=== PATIENT | female | born 1925 ===

== ENCOUNTER 2017-08-03 13:14 | Inpatient (IN) | payer MEDICAID, MEDICARE ==
[2017-08-03] MEDS ORDERED: Sodium Chloride 0.9% 1,000 ML IV STA (13:56)
--- NOTE | 2017-08-03 14:04 | RAD ---
HISTORY: Shortness of breath COMPARISON: 08/05/2014. FINDINGS: LUNGS: The lungs are hyperinflated and there is peribronchial thickening with chronic changes in both lungs. No focal consolidation. PLEURA: No significant pleural effusion identified, no pneumothorax apparent. CARDIOVASCULAR: Normal. OSSEOUS STRUCTURES: No significant abnormalities. VISUALIZED UPPER ABDOMEN: Normal. OTHER FINDINGS: None. IMPRESSION: No active pulmonary disease. COPD.
--- NOTE | 2017-08-03 14:07 | ED PDOC ---
HPI: Trauma/Fall - HPI Time Seen by Provider: 08/03/17 13:46 Chief Complaint (Nursing): Trauma Chief Complaint (Provider): found on floor History Per: Patient, EMS, Family History/Exam Limitations: clinical condition, physical impairment (dementia) Onset/Duration Of Symptoms: Unknown Additional Complaint(s): 89yo female, lives alone, found on floor in bathroom by a family member this morning when she wouldnt answer the door. They are unsure when she fell, son last saw her several weeks ago and hasnt spoken to her in 'awhile'. Patient has baseline mild dementia, she is unable to state reliably when she fell. Found soiled in feces. Past Medical History Reviewed: Historical Data, Nursing Documentation, Vital Signs Vital Signs: Last Vital Signs Temp 97.6 F 08/03/17 13:26 Pulse 104 H 08/03/17 13:26 Resp 18 08/03/17 13:26 BP 130/84 08/03/17 13:26 Pulse Ox 99 08/03/17 13:26 - Medical History PMH: Dementia, Diabetes, HTN - Surgical History Surgical History: Cholecystectomy Other surgeries: hip surgeries, shoulder surgeries - Family History Family History: States: Unknown Family Hx - Living Arrangements Living Arrangements: Alone - Social History Current smoker - smoking cessation education provided: No - Home Medications Home Medications: Ambulatory Orders Medication Instructions Recorded MetFORMIN [glucoPHAGE] 1,000 mg PO BID 08/03/17 Metoprolol Succinate [Toprol XL] 25 mg PO DAILY 08/03/17 Pravastatin Sodium [Pravachol] 40 mg PO HS 08/03/17 Ramipril [Altace] 10 mg PO DAILY 08/03/17 hydroCHLOROthiazide [Hydrodiuril] 25 mg PO DAILY 08/03/17 - Allergies Allergies/Adverse Reactions: Allergies Allergy/AdvReac Type Severity Reaction Status Date / Time No Known Allergies Allergy Verified 08/20/15 23:55 Review of Systems Review Of Systems: ROS cannot be obtained secondary to pt's inabilty to answer questions. Physical Exam - Reviewed Nursing Documentation Reviewed: Yes Vital Signs Reviewed: Yes - Physical Exam Appears: Positive for: Non-toxic (dry, confused) Head Exam: Positive for: ATRAUMATIC, NORMAL INSPECTION, NORMOCEPHALIC Skin: Positive for: Normal Color, Warm, DRY Eye Exam: Positive for: EOMI, Normal appearance, PERRL ENT: Positive for: Normal ENT Inspection Neck: Positive for: Normal, Painless ROM Cardiovascular/Chest: Positive for: Regular Rate, Rhythm Respiratory: Positive for: CNT, Normal Breath Sounds Gastrointestinal/Abdominal: Positive for: Soft. Negative for: Tenderness Extremity: Positive for: Tenderness (R hip). Negative for: Deformity, Swelling Neurologic/Psych: Positive for: Alert, Other (confused, moves all ext w equal tone, no gaze preference). Negative for: Oriented, Facial Droop - Laboratory Results Result Diagrams: 08/03/17 14:10 08/03/17 14:10 - ECG ECG: Positive for: Interpreted By Mn ECG Rhythm: Positive for: Sinus Rhythm, Nonspecific Changes Rate: 95 O2 Sat by Pulse Oximetry: 99 Pulse Ox Interpretation: Normal Medical Decision Making Medical Decision Making: workup for fall, r/o traumatic injury, dehydration, rhabdomyolysis, ICH/CVA, metabolic degrangement, kidney injury or other diagnosis not listed Time: 1353 EKG CMP CPK Troponin I CBC w/ diff PTT & Prothrombin Toradol 15 mg IVP Sodium Chloride 1L IV Urinalysis chest x-ray Head CT Cervical Spine CT Right hip x-ray Reevaluation Time: 1402 --Chest x-ray FINDINGS: LUNGS: The lungs are hyperinflated and there is peribronchial thickening with chronic changes in both lungs. No focal consolidation. PLEURA: No significant pleural effusion identified, no pneumothorax apparent. CARDIOVASCULAR: Normal. OSSEOUS STRUCTURES: No significant abnormalities. VISUALIZED UPPER ABDOMEN: Normal. OTHER FINDINGS: None. IMPRESSION: No active pulmonary disease. COPD. Time: 1429 --Head CT FINDINGS: HEMORRHAGE: No intracranial hemorrhage. BRAIN: No mass effect or edema. Atrophy. Chronic microvascular ischemic changes. VENTRICLES: Prominent. No hydrocephalus. CALVARIUM: Unremarkable. PARANASAL SINUSES: Unremarkable as visualized. No significant inflammatory changes. MASTOID AIR CELLS: Unremarkable as visualized. No inflammatory changes. OTHER FINDINGS: None. IMPRESSION: No acute intracranial pathology. Time: 1435 --Cervical spine x-ray FINDINGS: VERTEBRAE: No fracture. Normal alignment. No destructive bony lesion. DISCS/SPINAL CANAL/NEURAL FORAMINA: Multilevel disc space narrowing with osteophytic ridging and multi foraminal narrowing. PARASPINAL SOFT TISSUES: Unremarkable. OTHER FINDINGS: None. IMPRESSION: No acute fracture. Multilevel degenerative changes. Time: 1501 --Hip/pelvis x-ray FINDINGS: BONES: Osteopenia. Bilateral hip arthroplasties with heterotopic ossification adjacent to both prostheses. No acute fracture. JOINTS: Bilateral hip arthroplasties. Sacroiliac joints and symphysis pubis mild degenerative. SOFT TISSUES: Normal. OTHER FINDINGS: None. IMPRESSION: Bilateral hip arthroplasties. No definite acute fracture. 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 She walks w walker at home and appears mildly confused compared to baseline Time: 1516 --Admit to hospital routine: as inpatient in med/surg for rhabdomyolysis and dehydration under the care of Dr. David Toro MD. Scribe Attestation: Documented by Nolvia Ramirez, acting as a scribe for Lopez Palomo DO. Provider Scribe Attestation: All medical record entries made by the Scribe were at my direction and personally dictated by me. I have reviewed the chart and agree that the record accurately reflects my personal performance of the history, physical exam, medical decision making, and the department course for this patient. I have also personally directed, reviewed, and agree with the discharge instructions and disposition. Disposition - Clinical Impression Clinical Impression: Rhabdomyolysis, Dehydration - Patient ED Disposition Is Patient to be Admitted: Yes Counseled Patient/Family Regarding: Studies Performed, Diagnosis, Need For Followup - Disposition Disposition: Routine/Home Disposition Time: 15:20 Condition: STABLE Forms: [employer] (Latvian)
[2017-08-03 14:22] LABS: BASO # 0.1 K/uL (0.0-0.2); BASO % 0.9 % (0.0-2.0); EOS % 0.1 % (0.0-4.0); HEMOGLOBIN 14.7 g/dL (12.0-16.0); LYMPH # 2.3 K/uL (1.0-4.3); MEAN CELL VOLUME 77.5 fl (81.0-99.0); MEAN CORPUSCULAR HEMOGLOBIN 25.1 pg (27.0-31.0); MEAN CORPUSCULAR HGB CONC 32.4 g/dL (33.0-37.0); MEAN PLATELET VOLUME 9.2 fl (7.2-11.7); MONO # 0.7 K/uL (0.0-0.8); MONO % 5.3 % (0.0-10.0); NEUT # 9.6 K/uL (1.8-7.0); NEUT % 75.7 % (50.0-75.0); RBC 5.87 Mil/uL (3.80-5.20); RED CELL DISTRIBUTION WIDTH 13.6 % (11.5-14.5); WHITE BLOOD COUNT 12.7 K/uL (4.8-10.8)
[2017-08-03 14:31] LABS: INR 1.1 (0.9-1.2); PARTIAL THROMBOPLASTIN TIME 26.3 Seconds (25.6-37.1); PROTHROMBIN TIME 12.2 Seconds (9.8-13.1)
[2017-08-03 14:32] LABS: ALB/GLOB RATIO 0.9 (1.0-2.1); ALBUMIN 4.2 g/dL (3.5-5.0); ALT/SGPT 50 U/L (9-52); AST/SGOT 80 U/L (14-36); BLOOD UREA NITROGEN 21 mg/dl (7-17); CALCIUM 10.1 mg/dL (8.4-10.2); GFR AFRICAN-AMERICAN > 60; GFR NON-AFRICAN AMERICAN > 60
--- NOTE | 2017-08-03 14:33 | CT ---
PROCEDURE: CT HEAD WITHOUT CONTRAST. HISTORY: r/o ICH COMPARISON: None available. TECHNIQUE: Axial computed tomography images were obtained through the head/brain without intravenous contrast. Radiation dose: Total exam DLP = 1173.6 mGy-cm. This CT exam was performed using one or more of the following dose reduction techniques: Automated exposure control, adjustment of the mA and/or kV according to patient size, and/or use of iterative reconstruction technique. FINDINGS: HEMORRHAGE: No intracranial hemorrhage. BRAIN: No mass effect or edema. Atrophy. Chronic microvascular ischemic changes. VENTRICLES: Prominent. No hydrocephalus. CALVARIUM: Unremarkable. PARANASAL SINUSES: Unremarkable as visualized. No significant inflammatory changes. MASTOID AIR CELLS: Unremarkable as visualized. No inflammatory changes. OTHER FINDINGS: None. IMPRESSION: No acute intracranial pathology.
--- NOTE | 2017-08-03 14:51 | CT ---
PROCEDURE: CT Cervical Spine without contrast HISTORY: trauma r/o fx COMPARISON: None available. TECHNIQUE: Axial computed tomography images were obtained of the cervical spine without the use of intravenous contrast. Coronal and sagittal reformatted images were created and reviewed. Radiation dose: Total exam DLP = 528 mGy-cm. This CT exam was performed using one or more of the following dose reduction techniques: Automated exposure control, adjustment of the mA and/or kV according to patient size, and/or use of iterative reconstruction technique. FINDINGS: VERTEBRAE: No fracture. Normal alignment. No destructive bony lesion. DISCS/SPINAL CANAL/NEURAL FORAMINA: Multilevel disc space narrowing with osteophytic ridging and multi foraminal narrowing. PARASPINAL SOFT TISSUES: Unremarkable. OTHER FINDINGS: None. IMPRESSION: No acute fracture. Multilevel degenerative changes.
--- NOTE | 2017-08-03 15:02 | RAD ---
PROCEDURE: Right Hip Radiographs. HISTORY: fall COMPARISON: None. FINDINGS: BONES: Osteopenia. Bilateral hip arthroplasties with heterotopic ossification adjacent to both prostheses. No acute fracture. JOINTS: Bilateral hip arthroplasties. Sacroiliac joints and symphysis pubis mild degenerative. SOFT TISSUES: Normal. OTHER FINDINGS: None. IMPRESSION: Bilateral hip arthroplasties. No definite acute fracture.
[2017-08-03] MEDS ORDERED: Oxycodone/Acetaminophen 5/325 mg Tab PO PRN (15:54)
[2017-08-03] MEDS ORDERED: Glucagon Recombinant 1 mg Inj IM PRN (16:00)
[2017-08-03] MEDS ORDERED: Dextrose 50% SYRINGE Inj (50 ml) IV PRN (16:00)
[2017-08-03 16:45] LABS: SQUAMOUS EPITHIAL 1 /hpf (0-5); URINE BILIRUBIN NEGATIVE (NEGATIVE); URINE BLOOD MODERATE (NEGATIVE); URINE CLARITY SLIGHTY-CLOUDY (Clear); URINE COLOR YELLOW (YELLOW); URINE GLUCOSE (UA) 50 mg/dL (Normal); URINE LEUKOCYTE ESTERASE NEG Leu/uL (Negative); URINE PROTEIN 100 mg/dL (NEGATIVE); URINE UROBILINOGEN 0.2-1.0 mg/dL (0.2-1.0)
[2017-08-03] MEDS: Insulin Lispro (humaLOG) 100 Units/ml Inj SC SCH ×2 (17:51→21:50)
[2017-08-03] MEDS ORDERED: Pneumococcal 23-Valent Vaccine IM ONE (21:00)
[2017-08-04 06:06] LABS: BASO # 0.1 K/uL (0.0-0.2); BASO % 0.6 % (0.0-2.0); EOS # 0.1 K/uL (0.0-0.7); EOS % 1.2 % (0.0-4.0); LYMPH # 2.6 K/uL (1.0-4.3); LYMPH % 26.7 % (20.0-40.0); MEAN CELL VOLUME 77.5 fl (81.0-99.0); MEAN CORPUSCULAR HEMOGLOBIN 24.7 pg (27.0-31.0); MEAN CORPUSCULAR HGB CONC 31.9 g/dL (33.0-37.0); MEAN PLATELET VOLUME 8.8 fl (7.2-11.7); MONO # 0.8 K/uL (0.0-0.8); MONO % 7.9 % (0.0-10.0); NEUT # 6.2 K/uL (1.8-7.0); NEUT % 63.6 % (50.0-75.0); NRBC % 0.1 % (0.0-0.0); RBC 5.26 Mil/uL (3.80-5.20); RED CELL DISTRIBUTION WIDTH 13.8 % (11.5-14.5); WHITE BLOOD COUNT 9.8 K/uL (4.8-10.8)
[2017-08-04 06:21] LABS: ALB/GLOB RATIO 0.9 (1.0-2.1); ALBUMIN 3.3 g/dL (3.5-5.0); ALT/SGPT 45 U/L (9-52); AST/SGOT 78 U/L (14-36); BLOOD UREA NITROGEN 22 mg/dl (7-17); CALCIUM 9.1 mg/dL (8.4-10.2); GFR AFRICAN-AMERICAN > 60; GFR NON-AFRICAN AMERICAN > 60; HDL CHOLESTEROL 59 MG/DL (30-70)
[2017-08-04 06:31] LABS: LDL CHOLESTEROL 85 mg/dL (0-129)
[2017-08-04] MEDS ORDERED: Potassium Chloride 20 mEq/15 ml LIQ UD PO ONE (07:59)
[2017-08-04] MEDS ORDERED: Sodium Chloride 0.9% 1,000 ML IV SCH (08:00)
[2017-08-04] MEDS: Insulin Lispro (humaLOG) 100 Units/ml Inj SC SCH ×4 (08:42→21:53)
[2017-08-04] MEDS: Enoxaparin 40 mg Syringe SC SCH (08:42)
[2017-08-04] MEDS: Metoprolol Succinate 25 mg XL Tab PO SCH (08:43)
--- NOTE | 2017-08-04 08:56 | CP.PCM.HP ---
History of Present Illness - History of Present Illness History of Present Illness: 89 yo ,f, PMhx/o diabetes, hypertension, dementia presents for evaluation after a fall. Patient was found on floor in bathroom yesterday when she would not answer the door. Patient did not remember what happened~~or for~~how many hours she has been on the floor and only reports bilateral hip pain. She lives along, the last time patient was seen by relatives was 1 week ago. On evaluation in ED patient awake, alert, oriented in person and place, with dementia baseline and difficult to get a history due to memory loss. She denies chest pain, shortness of breath, cough, headache, weakness, numbness, dysuria. Patient seen and examined bedside today with Dr coto. Patient AAO x 3. reports body aches, dementia baseline, no confusion, no motor, sensory deficit. Present on Admission - Present on Admission Any Indicators Present on Admission: No History of DVT/PE: No History of Uncontrolled Diabetes: No Urinary Catheter: No Decubitus Ulcer Present: No Review of Systems - Review of Systems All systems: reviewed and no additional remarkable complaints except - Musculoskeletal Additional comments: bilateral hip pain Past Patient History - Past Social History Smoking Status: Never Smoked - CARDIAC Hx Hypertension: Yes - PULMONARY Hx Respiratory Disorders: No - NEUROLOGICAL Hx Dementia: Yes - HEENT Hx HEENT Problems: No Other/Comment: hx of lasik procedure - RENAL Hx Chronic Kidney Disease: No - ENDOCRINE/METABOLIC Hx Endocrine Disorders: Yes - HEMATOLOGICAL/ONCOLOGICAL Hx Blood Disorders: No - INTEGUMENTARY Hx Dermatological Problems: No - MUSCULOSKELETAL/RHEUMATOLOGICAL Hx Musculoskeletal Disorders: Yes Hx Falls: Yes - GENITOURINARY/GYNECOLOGICAL Hx Genitourinary Disorders: Yes - PSYCHIATRIC Hx Psychophysiologic Disorder: No Hx Substance Use: No - SURGICAL HISTORY Hx Cholecystectomy: Yes Hx Orthopedic Surgery: Yes (b/l hip arthroplasties) Other/Comment: b/l shoulder surgery - ANESTHESIA Hx Anesthesia: Yes Hx Anesthesia Reactions: No Meds Allergies/Adverse Reactions: Allergies Allergy/AdvReac Type Severity Reaction Status Date / Time No Known Allergies Allergy Verified 08/20/15 23:55 Physical Exam - Constitutional Appears: Non-toxic, No Acute Distress - Head Exam Head Exam: ATRAUMATIC, NORMOCEPHALIC - Eye Exam Eye Exam: Normal appearance - ENT Exam ENT Exam: Mucous Membranes Moist - Neck Exam Neck exam: Positive for: Normal Inspection - Respiratory Exam Respiratory Exam: Clear to Auscultation Bilateral. absent: Rales, Rhonchi, Wheezes - Cardiovascular Exam Cardiovascular Exam: REGULAR RHYTHM, +S1, +S2 - GI/Abdominal Exam GI & Abdominal Exam: Normal Bowel Sounds, Soft. absent: Tenderness - Extremities Exam Extremities exam: Positive for: normal inspection - Back Exam Back exam: NORMAL INSPECTION - Neurological Exam Neurological exam: Alert, Oriented x3 Additional comments: able to move 4 ext. muscle strength 5/5 - Psychiatric Exam Psychiatric exam: Normal Affect, Normal Mood - Skin Skin Exam: Intact Results - Vital Signs Recent Vital Signs: Last Vital Signs Temp 98.0 F 08/04/17 08:03 Pulse 82 08/04/17 08:43 Resp 18 08/04/17 08:03 BP 167/79 H 08/04/17 08:43 Pulse Ox 97 08/04/17 08:03 - Labs Result Diagrams: 08/04/17 05:55 08/04/17 05:55 Labs: Laboratory Results - last 24 hr 08/03/17 08/03/17 08/03/17 13:58 14:10 14:10 WBC 12.7 H RBC 5.87 H Hgb 14.7 Hct 45.5 MCV 77.5 L MCH 25.1 L MCHC 32.4 L RDW 13.6 Plt Count 192 MPV 9.2 Neut % (Auto) 75.7 H Lymph % (Auto) 18.0 L [place] % (Auto) 5.3 Eos % (Auto) 0.1 Baso % (Auto) 0.9 Neut # (Auto) 9.6 H Lymph # (Auto) 2.3 [place] # (Auto) 0.7 Eos # (Auto) 0.0 Baso # (Auto) 0.1 PT INR APTT Sodium 141 Potassium 3.8 Chloride 96 L Carbon Dioxide 28 Anion Gap 21 H BUN 21 H Creatinine 0.6 L Est GFR ( Amer) > 60 Est GFR (Non-Af Amer) > 60 POC Glucose (mg/dL) 198 H Random Glucose 218 H Calcium 10.1 Total Bilirubin 0.7 AST 80 H ALT 50 Alkaline Phosphatase 86 Total Creatine Kinase 1584 H Troponin I 0.0150 Total Protein 8.9 H Albumin 4.2 Globulin 4.7 H Albumin/Globulin Ratio 0.9 L Triglycerides Cholesterol LDL Cholesterol Direct HDL Cholesterol Urine Color Urine Clarity Urine pH Ur Specific [place] Urine Protein Urine Glucose (UA) Urine Ketones Urine Blood Urine Nitrate Urine Bilirubin Urine Urobilinogen Ur Leukocyte Esterase Urine RBC (Auto) Urine Microscopic WBC Ur Squamous Epith Cells 08/03/17 08/03/17 08/03/17 14:10 16:30 17:13 WBC RBC Hgb Hct MCV MCH MCHC RDW Plt Count MPV Neut % (Auto) Lymph % (Auto) [place] % (Auto) Eos % (Auto) Baso % (Auto) Neut # (Auto) Lymph # (Auto) [place] # (Auto) Eos # (Auto) Baso # (Auto) PT 12.2 INR 1.1 APTT 26.3 Sodium Potassium Chloride Carbon Dioxide Anion Gap BUN Creatinine Est GFR ( Amer) Est GFR (Non-Af Amer) POC Glucose (mg/dL) 152 H Random Glucose Calcium Total Bilirubin AST ALT Alkaline Phosphatase Total Creatine Kinase Troponin I Total Protein Albumin Globulin Albumin/Globulin Ratio Triglycerides Cholesterol LDL Cholesterol Direct HDL Cholesterol Urine Color Yellow Urine Clarity Slighty-cloudy Urine pH 6.0 Ur Specific [place] 1.021 Urine Protein 100 Urine Glucose (UA) 50 Urine Ketones Trace Urine Blood Moderate Urine Nitrate Negative Urine Bilirubin Negative Urine Urobilinogen 0.2-1.0 Ur Leukocyte Esterase Neg Urine RBC (Auto) 38 H Urine Microscopic WBC 2 Ur Squamous Epith Cells 1 08/03/17 08/04/17 08/04/17 21:28 05:25 05:55 WBC 9.8 RBC 5.26 H Hgb 13.0 Hct 40.8 MCV 77.5 L MCH 24.7 L MCHC 31.9 L RDW 13.8 Plt Count 168 MPV 8.8 Neut % (Auto) 63.6 Lymph % (Auto) 26.7 [place] % (Auto) 7.9 Eos % (Auto) 1.2 Baso % (Auto) 0.6 Neut # (Auto) 6.2 Lymph # (Auto) 2.6 [place] # (Auto) 0.8 Eos # (Auto) 0.1 Baso # (Auto) 0.1 PT INR APTT Sodium Potassium Chloride Carbon Dioxide Anion Gap BUN Creatinine Est GFR ( Amer) Est GFR (Non-Af Amer) POC Glucose (mg/dL) 182 H 203 H Random Glucose Calcium Total Bilirubin AST ALT Alkaline Phosphatase Total Creatine Kinase Troponin I Total Protein Albumin Globulin Albumin/Globulin Ratio Triglycerides Cholesterol LDL Cholesterol Direct HDL Cholesterol Urine Color Urine Clarity Urine pH Ur Specific [place] Urine Protein Urine Glucose (UA) Urine Ketones Urine Blood Urine Nitrate Urine Bilirubin Urine Urobilinogen Ur Leukocyte Esterase Urine RBC (Auto) Urine Microscopic WBC Ur Squamous Epith Cells 08/04/17 08/04/17 05:55 05:55 WBC RBC Hgb Hct MCV MCH MCHC RDW Plt Count MPV Neut % (Auto) Lymph % (Auto) [place] % (Auto) Eos % (Auto) Baso % (Auto) Neut # (Auto) Lymph # (Auto) [place] # (Auto) Eos # (Auto) Baso # (Auto) PT INR APTT Sodium 141 Potassium 3.2 L Chloride 100 Carbon Dioxide 31 H Anion Gap 13 BUN 22 H Creatinine 0.7 Est GFR ( Amer) > 60 Est GFR (Non-Af Amer) > 60 POC Glucose (mg/dL) Random Glucose 196 H Calcium 9.1 Total Bilirubin 0.6 AST 78 H ALT 45 Alkaline Phosphatase 60 Total Creatine Kinase 1374 H Troponin I 0.0250 Total Protein 7.0 Albumin 3.3 L D Globulin 3.7 Albumin/Globulin Ratio 0.9 L Triglycerides 91 Cholesterol 176 LDL Cholesterol Direct 85 HDL Cholesterol 59 Urine Color Urine Clarity Urine pH Ur Specific [place] Urine Protein Urine Glucose (UA) Urine Ketones Urine Blood Urine Nitrate Urine Bilirubin Urine Urobilinogen Ur Leukocyte Esterase Urine RBC (Auto) Urine Microscopic WBC Ur Squamous Epith Cells Assessment & Plan - Assessment and Plan (Free Text) Plan: Assessment/ plan 1) Fall at home -CT head : no intracranial bleeding x-ray cervical spine : no fracture x-ray hips: normal no fracture PT/OT 2) Rhabdomyolysis -secondary to fall and immobilization -hydration 150 ml/h -CK elevated, trending down -follow CK ,BMP 3) Hypertension continue home medication 4) DM -hold Metformin insulin sliding scale -hypoglycemia protocol 5) dementia - continue home medication 6) DVT prophylaxis Lovenox 40 mg sc daily
--- NOTE | 2017-08-04 08:58 | CARD ---
APPROVED REPORT EKG Measurement Heart [id number] <Conclusion> Normal sinus rhythm Left anterior fascicular block Anterior infarct, age undetermined Abnormal ECG
--- NOTE | 2017-08-04 10:09 | CARD ---
APPROVED REPORT EXAM: Two-dimensional and M-mode echocardiogram with Doppler and color Doppler. Other Information Quality : AverageRhythm : NSR INDICATION OLD [place] 2D DIMENSIONS IVSd0.87 (0.7-1.1cm)LVDd4.48 (3.9-5.9cm) LVOT Diameter2.61 (1.8-2.4cm)PWd1.06 (0.7-1.1cm) IVSs1.28 (0.8-1.2cm)LVDs2.86 (2.5-4.0cm) FS (%) 36.2 %PWs1.39 (0.8-1.2cm) M-Mode DIMENSIONS Left Atrium (MM)4.29 (2.5-4.0cm)IVSd1.09 (0.7-1.1cm) Aortic Root2.79 (2.2-3.7cm)LVDd4.12 (4.0-5.6cm) Aortic Cusp Exc.1.88 (1.5-2.0cm)PWd1.09 (0.7-1.1cm) IVSs1.26 cmFS (%) 37 % LVDs2.59 (2.0-3.8cm)PWs1.26 cm Mitral Valve MV E Ocyxemin93.0cm/sMV DECEL [id number] A Krqrsmbn309.2cm/s MV [id number]/A ratio0.6MVA (PHT)3.49cm2 TDI Lateral E' Peak V5.87cm/sMedial E' Peak V4.48cm/sE/Lateral E'11.1 E/Medial E'14.5 LEFT VENTRICLE The left ventricle is normal size. There is normal left ventricular wall thickness. Left ventricle systolic function is normal. The Ejection Fraction is 65-70%. There is normal LV segmental wall motion. Transmitral Doppler flow pattern is Grade I-abnormal relaxation pattern. RIGHT VENTRICLE The right ventricle is normal size. There is normal right ventricular wall thickness. The right ventricular systolic function is normal. ATRIA The left atrium size is normal. The right atrium size is normal. AORTIC VALVE The aortic valve is normal in structure. No aortic regurgitation is present. There is no aortic valvular stenosis. MITRAL VALVE The mitral valve is normal in structure. There is no evidence of mitral valve prolapse. There is no mitral valve stenosis. There is no mitral valve regurgitation noted. TRICUSPID VALVE The tricuspid valve is normal in structure. There is no tricuspid valve regurgitation noted. PULMONIC VALVE The pulmonary valve is normal in structure. There is no pulmonic valvular regurgitation. GREAT VESSELS The aortic root is normal in size. The IVC is normal in size and collapses >50% with inspiration. PERICARDIAL EFFUSION The pericardium appears normal. <Conclusion> There is normal left ventricular wall thickness. There is normal LV segmental wall motion. Left ventricle systolic function is normal. The Ejection Fraction is 65-70%. Transmitral Doppler flow pattern is Grade I-abnormal relaxation pattern.
--- NOTE | 2017-08-04 13:08 | PQF GENQUE ---
This form is a permanent part of the medical record 08/04/17 Dr. Toro, Please specify type and status of diabetes. Documentation of DM. Accuchecks monitored with sliding scale insulin. Glucose runnin, 218, 152, 182, 203, 196... Clarification of your documentation is requested to better reflect the severity of illness and intensity of treatment of your patient. Indicators present PHYSICIAN'S RESPONSE 1.Please specify type of DM: Type 1 Type 2 Due to an underlying condition/secondary (please specify condition) Due to drugs or chemical (please specify associated drug or chemical) Other (please specify) Clinically unable to determine Unknown 2. Please specify status: With coma With hyperglycemia (poorly controlled, out of control, etc.) With hyperosmolarity ([facility]) With hypoglycemia With ketoacidosis Other (please specify) Clinically unable to determine Unknown Based on your medical judgment of the clinical indicators outlined above please clarify the following: [] Practitioner response [] If unable to determine, please check the box, sign and date. Present On Admission (POA) Indicator: [] Present at the time of admission [] Not present at the time of admission [] Clinically Undetermined In responding to this query, please exercise your independent professional judgment. The fact that a question is asked does not imply that any particular answer is desired or expected. Thank you for your clarification on this documentation. If you have any questions please call:extension [phone] * Thank you, Brielle Hatch RN [facility]
--- NOTE | 2017-08-04 13:12 | PQF GENQUE ---
This form is a permanent part of the medical record 08/04/17 Dr. Toro, TRAUMATIC RHABDOMYOLYSIS versus NON TRAUMATIC RHABDOMYOLYSIS or other explanation or unable to determine. A cause and effect relationship may not be assumed and must be documented by a provider. Please clarify the relationship, if any, between the fall and rhabdomyolysis. Are the conditions: Due to or associated with each other Unrelated to each other Clinically unable to determine Unknown ER Note: 89 year old found on the floor in the bathroom by a family member this morning when she wouldn't answer the door. They are unsure of when she fell. Total CK 1584--> 1374. Clarification of your documentation is requested to better reflect the severity of illness and intensity of treatment of your patient. Indicators present PHYSICIAN'S RESPONSE Based on your medical judgment of the clinical indicators outlined above please clarify the following: [] Practitioner response [] If unable to determine, please check the box, sign and date. Present On Admission (POA) Indicator: [] Present at the time of admission [] Not present at the time of admission [] Clinically Undetermined In responding to this query, please exercise your independent professional judgment. The fact that a question is asked does not imply that any particular answer is desired or expected. Thank you for your clarification on this documentation. If you have any questions please call:ext [phone] * Thank you, Brielle Hatch RN [facility]
--- NOTE | 2017-08-04 14:23 | CP.PCM.CON ---
History of Present Illness - History of Present Illness History of Present Illness: Mrs. Guerra is an 89-year-old woman with a past medical history of diabetes, hypertension, dementia presents for evaluation after a fall. She was found on floor in bathroom yesterday. Labs showed elevated CK levels. The patient is difficult to obtain a history from due to advanced dementia. Review of Systems - Review of Systems Systems not reviewed;Unavailable: Altered Mental Status All systems: reviewed and no additional remarkable complaints except Past Patient History - Past Social History Smoking Status: Never Smoked - CARDIAC Hx Hypertension: Yes - PULMONARY Hx Respiratory Disorders: No - NEUROLOGICAL Hx Dementia: Yes - HEENT Hx HEENT Problems: No Other/Comment: hx of lasik procedure - RENAL Hx Chronic Kidney Disease: No - ENDOCRINE/METABOLIC Hx Endocrine Disorders: Yes - HEMATOLOGICAL/ONCOLOGICAL Hx Blood Disorders: No - INTEGUMENTARY Hx Dermatological Problems: No - MUSCULOSKELETAL/RHEUMATOLOGICAL Hx Musculoskeletal Disorders: Yes Hx Falls: Yes - GENITOURINARY/GYNECOLOGICAL Hx Genitourinary Disorders: Yes - PSYCHIATRIC Hx Psychophysiologic Disorder: No Hx Substance Use: No - SURGICAL HISTORY Hx Cholecystectomy: Yes Hx Orthopedic Surgery: Yes (b/l hip arthroplasties) Other/Comment: b/l shoulder surgery - ANESTHESIA Hx Anesthesia: Yes Hx Anesthesia Reactions: No Meds Allergies/Adverse Reactions: Allergies Allergy/AdvReac Type Severity Reaction Status Date / Time No Known Allergies Allergy Verified 08/20/15 23:55 - Medications Medications: Current Medications Acetaminophen (Tylenol 325mg Tab) 650 mg PO Q6 PRN PRN Reason: Pain, Mild (1-3) Acetaminophen (Tylenol 325mg Tab) 650 mg PO Q6 PRN PRN Reason: Fever >100.4 F Dextrose (Dextrose 50% Inj) 0 ml IV STAT PRN; Protocol PRN Reason: Hypoglycemia Protocol Dextrose (Glutose 15) 0 gm PO ONCE PRN; Protocol PRN Reason: Hypoglycemia Protocol Enoxaparin Sodium (Lovenox) 40 mg SC DAILY [facility] PRN Reason: Protocol Last Admin: 08/04/17 08:42 Dose: 40 mg Glucagon (Glucagen Diagnostic Kit) 0 mg IM STAT PRN; Protocol PRN Reason: Hypoglycemia Protocol Sodium Chloride (Sodium Chloride 0.9%) 1,000 mls @ 200 mls/hr IV .Q5H [facility] Stop: 08/07/17 07:58 Insulin Human Lispro (Humalog) 0 units SC ACHS [facility] PRN Reason: Protocol Last Admin: 08/04/17 11:04 Dose: 3 units Metoprolol Succinate (Toprol Xl) 25 mg PO DAILY [facility] Last Admin: 08/04/17 08:43 Dose: 25 mg Oxycodone/Acetaminophen (Percocet 5/325 Mg Tab) 1 tab PO Q6 PRN PRN Reason: Pain, severe (8-10) Stop: 08/06/17 16:01 Ramipril (Altace) 10 mg PO DAILY [facility] Last Admin: 08/04/17 08:43 Dose: 10 mg Physical Exam - Constitutional Appears: Well - Head Exam Head Exam: ATRAUMATIC, NORMAL INSPECTION, NORMOCEPHALIC - Neurological Exam Neurological exam: Abnormal Gait, Alert, CN II-XII Intact, Reflexes Normal Additional comments: Confused about place and time. Advanced dementia. Results - Vital Signs Recent Vital Signs: Last Vital Signs Temp 98.0 F 08/04/17 08:03 Pulse 85 08/04/17 11:22 Resp 18 08/04/17 08:03 BP 167/79 H 08/04/17 08:43 Pulse Ox 97 08/04/17 08:03 - Labs Result Diagrams: 08/04/17 05:55 08/04/17 05:55 Labs: Laboratory Results - last 24 hr 08/03/17 08/03/17 08/03/17 13:58 14:10 14:10 WBC 12.7 H RBC 5.87 H Hgb 14.7 Hct 45.5 MCV 77.5 L MCH 25.1 L MCHC 32.4 L RDW 13.6 Plt Count 192 MPV 9.2 Neut % (Auto) 75.7 H Lymph % (Auto) 18.0 L Reagan % (Auto) 5.3 Eos % (Auto) 0.1 Baso % (Auto) 0.9 Neut # (Auto) 9.6 H Lymph # (Auto) 2.3 Reagan # (Auto) 0.7 Eos # (Auto) 0.0 Baso # (Auto) 0.1 PT INR APTT Sodium 141 Potassium 3.8 Chloride 96 L Carbon Dioxide 28 Anion Gap 21 H BUN 21 H Creatinine 0.6 L Est GFR ( Amer) > 60 Est GFR (Non-Af Amer) > 60 POC Glucose (mg/dL) 198 H Random Glucose 218 H Hemoglobin A1c Calcium 10.1 Total Bilirubin 0.7 AST 80 H ALT 50 Alkaline Phosphatase 86 Total Creatine Kinase 1584 H Troponin I 0.0150 Total Protein 8.9 H Albumin 4.2 Globulin 4.7 H Albumin/Globulin Ratio 0.9 L Triglycerides Cholesterol LDL Cholesterol Direct HDL Cholesterol Urine Color Urine Clarity Urine pH Ur Specific Hale Urine Protein Urine Glucose (UA) Urine Ketones Urine Blood Urine Nitrate Urine Bilirubin Urine Urobilinogen Ur Leukocyte Esterase Urine RBC (Auto) Urine Microscopic WBC Ur Squamous Epith Cells 08/03/17 08/03/17 08/03/17 14:10 16:30 17:13 WBC RBC Hgb Hct MCV MCH MCHC RDW Plt Count MPV Neut % (Auto) Lymph % (Auto) Reagan % (Auto) Eos % (Auto) Baso % (Auto) Neut # (Auto) Lymph # (Auto) Reagan # (Auto) Eos # (Auto) Baso # (Auto) PT 12.2 INR 1.1 APTT 26.3 Sodium Potassium Chloride Carbon Dioxide Anion Gap BUN Creatinine Est GFR ( Amer) Est GFR (Non-Af Amer) POC Glucose (mg/dL) 152 H Random Glucose Hemoglobin A1c Calcium Total Bilirubin AST ALT Alkaline Phosphatase Total Creatine Kinase Troponin I Total Protein Albumin Globulin Albumin/Globulin Ratio Triglycerides Cholesterol LDL Cholesterol Direct HDL Cholesterol Urine Color Yellow Urine Clarity Slighty-cloudy Urine pH 6.0 Ur Specific Hale 1.021 Urine Protein 100 Urine Glucose (UA) 50 Urine Ketones Trace Urine Blood Moderate Urine Nitrate Negative Urine Bilirubin Negative Urine Urobilinogen 0.2-1.0 Ur Leukocyte Esterase Neg Urine RBC (Auto) 38 H Urine Microscopic WBC 2 Ur Squamous Epith Cells 1 08/03/17 08/04/17 08/04/17 21:28 05:25 05:55 WBC 9.8 RBC 5.26 H Hgb 13.0 Hct 40.8 MCV 77.5 L MCH 24.7 L MCHC 31.9 L RDW 13.8 Plt Count 168 MPV 8.8 Neut % (Auto) 63.6 Lymph % (Auto) 26.7 Reagan % (Auto) 7.9 Eos % (Auto) 1.2 Baso % (Auto) 0.6 Neut # (Auto) 6.2 Lymph # (Auto) 2.6 Reagan # (Auto) 0.8 Eos # (Auto) 0.1 Baso # (Auto) 0.1 PT INR APTT Sodium Potassium Chloride Carbon Dioxide Anion Gap BUN Creatinine Est GFR ( Amer) Est GFR (Non-Af Amer) POC Glucose (mg/dL) 182 H 203 H Random Glucose Hemoglobin A1c Calcium Total Bilirubin AST ALT Alkaline Phosphatase Total Creatine Kinase Troponin I Total Protein Albumin Globulin Albumin/Globulin Ratio Triglycerides Cholesterol LDL Cholesterol Direct HDL Cholesterol Urine Color Urine Clarity Urine pH Ur Specific Hale Urine Protein Urine Glucose (UA) Urine Ketones Urine Blood Urine Nitrate Urine Bilirubin Urine Urobilinogen Ur Leukocyte Esterase Urine RBC (Auto) Urine Microscopic WBC Ur Squamous Epith Cells 08/04/17 08/04/17 08/04/17 05:55 05:55 05:55 WBC RBC Hgb Hct MCV MCH MCHC RDW Plt Count MPV Neut % (Auto) Lymph % (Auto) Reagan % (Auto) Eos % (Auto) Baso % (Auto) Neut # (Auto) Lymph # (Auto) Reagan # (Auto) Eos # (Auto) Baso # (Auto) PT INR APTT Sodium 141 Potassium 3.2 L Chloride 100 Carbon Dioxide 31 H Anion Gap 13 BUN 22 H Creatinine 0.7 Est GFR ( Amer) > 60 Est GFR (Non-Af Amer) > 60 POC Glucose (mg/dL) Random Glucose 196 H Hemoglobin A1c 9.4 H Calcium 9.1 Total Bilirubin 0.6 AST 78 H ALT 45 Alkaline Phosphatase 60 Total Creatine Kinase 1374 H Troponin I 0.0250 Total Protein 7.0 Albumin 3.3 L D Globulin 3.7 Albumin/Globulin Ratio 0.9 L Triglycerides 91 Cholesterol 176 LDL Cholesterol Direct 85 HDL Cholesterol 59 Urine Color Urine Clarity Urine pH Ur Specific Hale Urine Protein Urine Glucose (UA) Urine Ketones Urine Blood Urine Nitrate Urine Bilirubin Urine Urobilinogen Ur Leukocyte Esterase Urine RBC (Auto) Urine Microscopic WBC Ur Squamous Epith Cells 08/04/17 10:36 WBC RBC Hgb Hct MCV MCH MCHC RDW Plt Count MPV Neut % (Auto) Lymph % (Auto) Reagan % (Auto) Eos % (Auto) Baso % (Auto) Neut # (Auto) Lymph # (Auto) Reagan # (Auto) Eos # (Auto) Baso # (Auto) PT INR APTT Sodium Potassium Chloride Carbon Dioxide Anion Gap BUN Creatinine Est GFR ( Amer) Est GFR (Non-Af Amer) POC Glucose (mg/dL) 243 H Random Glucose Hemoglobin A1c Calcium Total Bilirubin AST ALT Alkaline Phosphatase Total Creatine Kinase Troponin I Total Protein Albumin Globulin Albumin/Globulin Ratio Triglycerides Cholesterol LDL Cholesterol Direct HDL Cholesterol Urine Color Urine Clarity Urine pH Ur Specific Hale Urine Protein Urine Glucose (UA) Urine Ketones Urine Blood Urine Nitrate Urine Bilirubin Urine Urobilinogen Ur Leukocyte Esterase Urine RBC (Auto) Urine Microscopic WBC Ur Squamous Epith Cells Assessment & Plan (1) Dementia Assessment and Plan: The patient was found confused on the bathroom floor with feces, and had dehydration and rhabdo. This may be due to progressive dementia, or she may have had a seizure. I recommend an EEG and and MRI for further evaluation and if there are significant abnormalities, we may consider an AED. Thank you. Status: Chronic Priority: Medium
[2017-08-04] MEDS: Sodium Chloride 0.9% 1,000 ML IV SCH (16:12)
[2017-08-04] MEDS: Vitamins A & D Oint UD Foilpak TOP SCH (16:12)
[2017-08-05] MEDS: Sodium Chloride 0.9% 1,000 ML IV SCH ×4 (05:30→13:34)
[2017-08-05 07:26] LABS: BASO # 0.1 K/uL (0.0-0.2); BASO % 1.2 % (0.0-2.0); EOS # 0.2 K/uL (0.0-0.7); EOS % 2.6 % (0.0-4.0); HEMOGLOBIN 12.6 g/dL (12.0-16.0); LYMPH # 3.1 K/uL (1.0-4.3); LYMPH % 39.5 % (20.0-40.0); MEAN CELL VOLUME 78.7 fl (81.0-99.0); MEAN CORPUSCULAR HEMOGLOBIN 25.1 pg (27.0-31.0); MEAN CORPUSCULAR HGB CONC 31.9 g/dL (33.0-37.0); MONO # 0.7 K/uL (0.0-0.8); MONO % 8.7 % (0.0-10.0); NEUT # 3.7 K/uL (1.8-7.0); RBC 5.03 Mil/uL (3.80-5.20); WHITE BLOOD COUNT 7.8 K/uL (4.8-10.8)
[2017-08-05 07:50] LABS: ALB/GLOB RATIO 0.9 (1.0-2.1); ALBUMIN 3.4 g/dL (3.5-5.0); ALT/SGPT 47 U/L (9-52); AST/SGOT 63 U/L (14-36); BLOOD UREA NITROGEN 14 mg/dl (7-17); CALCIUM 8.4 mg/dL (8.4-10.2); GFR AFRICAN-AMERICAN > 60; GFR NON-AFRICAN AMERICAN > 60
[2017-08-05] MEDS: Enoxaparin 40 mg Syringe SC SCH (08:46)
[2017-08-05] MEDS: Insulin Lispro (humaLOG) 100 Units/ml Inj SC SCH ×3 (08:47→16:04)
[2017-08-05] MEDS: Vitamins A & D Oint UD Foilpak TOP SCH ×2 (08:47→16:05)
[2017-08-05] MEDS: Metoprolol Succinate 25 mg XL Tab PO SCH (08:47)
[2017-08-06] MEDS: Insulin Lispro (humaLOG) 100 Units/ml Inj SC SCH ×5 (00:25→21:47)
[2017-08-06] MEDS: Sodium Chloride 0.9% 1,000 ML IV SCH (00:27)
--- NOTE | 2017-08-06 00:39 | CP.PCM.PCO ---
Physician Communication Note - Physician Communication Note Physician Communication Note: nurse called, systolic BP 178 mmHg, patient asymptomatic Assessment and Plan - Assessment and Plan (Free Text) Assessment: Patient asymptomatic. Ordered one dose of HCTZ 25mg PO , same home medication, was not administered prior due to lower BP on admission.
[2017-08-06] MEDS: Metoprolol Succinate 25 mg XL Tab PO SCH (08:20)
[2017-08-06] MEDS: Enoxaparin 40 mg Syringe SC SCH (08:20)
[2017-08-06] MEDS: Vitamins A & D Oint UD Foilpak TOP SCH ×2 (08:21→17:56)
--- NOTE | 2017-08-06 15:12 | CP.PCM.PN ---
Subjective - Date & Time of Evaluation Date of Evaluation: 08/05/17 Time of Evaluation: 18:30 - Subjective Subjective: patient has some pain and tenderness on mid back Has no chest pain Has good appetite Objective - Vital Signs/Intake and Output Vital Signs (last 24 hours): Temp Pulse Resp BP Pulse Ox 97.8 F 64 18 170/72 H 96 08/06/17 07:56 08/06/17 07:56 08/06/17 07:56 08/06/17 08:20 08/06/17 07:56 Intake and Output: 08/06/17 08/06/17 06:59 18:59 Intake Total 1200 Balance 1200 - Medications Medications: Current Medications Acetaminophen (Tylenol 325mg Tab) 650 mg PO Q6 PRN PRN Reason: Pain, Mild (1-3) Acetaminophen (Tylenol 325mg Tab) 650 mg PO Q6 PRN PRN Reason: Fever >100.4 F Amlodipine Besylate (Norvasc) 5 mg PO DAILY [facility] Dextrose (Dextrose 50% Inj) 0 ml IV STAT PRN; Protocol PRN Reason: Hypoglycemia Protocol Dextrose (Glutose 15) 0 gm PO ONCE PRN; Protocol PRN Reason: Hypoglycemia Protocol Enoxaparin Sodium (Lovenox) 40 mg SC DAILY [facility] PRN Reason: Protocol Last Admin: 08/06/17 08:20 Dose: 40 mg Glucagon (Glucagen Diagnostic Kit) 0 mg IM STAT PRN; Protocol PRN Reason: Hypoglycemia Protocol Insulin Human Lispro (Humalog) 0 units SC ACHS [facility] PRN Reason: Protocol Last Admin: 08/06/17 08:20 Dose: Not Given Metoprolol Succinate (Toprol Xl) 25 mg PO DAILY [facility] Last Admin: 08/06/17 08:20 Dose: 25 mg Oxycodone/Acetaminophen (Percocet 5/325 Mg Tab) 1 tab PO Q6 PRN PRN Reason: Pain, severe (8-10) Stop: 08/06/17 16:01 Sitagliptin Phosphate (Januvia) 100 mg PO DAILY [facility] Valsartan (Diovan) 160 mg PO DAILY [facility] Vitamin A (Vitamin A & D Oint Ud Foilpak) 1 ea TOP BID [facility] Last Admin: 08/06/17 08:21 Dose: 1 ea - Labs Labs: 08/05/17 06:12 08/05/17 06:12 PT 12.2 Seconds (9.8-13.1) 08/03/17 14:10 INR 1.1 (0.9-1.2) 08/03/17 14:10 APTT 26.3 Seconds (25.6-37.1) 08/03/17 14:10 - Head Exam Head Exam: NORMAL INSPECTION - Eye Exam Eye Exam: Normal appearance - ENT Exam ENT Exam: Mucous Membranes Moist - Respiratory Exam Respiratory Exam: Clear to Ausculation Bilateral - Cardiovascular Exam Cardiovascular Exam: REGULAR RHYTHM - Neurological Exam Neurological Exam: Awake, Oriented x3 - Psychiatric Exam Psychiatric exam: Normal Mood Assessment and Plan (1) Rhabdomyolysis Status: Acute (2) Contusion, knee Status: Acute (3) Dehydration Status: Acute (4) Dementia Status: Chronic - Assessment and Plan (Free Text) Plan: Cont meds Cont tx Cont pain meds Cont PT
--- NOTE | 2017-08-06 15:13 | CP.PCM.PN ---
Subjective - Date & Time of Evaluation Date of Evaluation: 08/06/17 Time of Evaluation: 15:12 - Subjective Subjective: Patient feels a lot better Noted CPK to have dropped to 400 plus Has no tenderness on any part of her body. Objective - Vital Signs/Intake and Output Vital Signs (last 24 hours): Temp Pulse Resp BP Pulse Ox 97.8 F 64 18 170/72 H 96 08/06/17 07:56 08/06/17 07:56 08/06/17 07:56 08/06/17 08:20 08/06/17 07:56 Intake and Output: 08/06/17 08/06/17 06:59 18:59 Intake Total 1200 Balance 1200 - Medications Medications: Current Medications Acetaminophen (Tylenol 325mg Tab) 650 mg PO Q6 PRN PRN Reason: Pain, Mild (1-3) Acetaminophen (Tylenol 325mg Tab) 650 mg PO Q6 PRN PRN Reason: Fever >100.4 F Amlodipine Besylate (Norvasc) 5 mg PO DAILY [facility] Dextrose (Dextrose 50% Inj) 0 ml IV STAT PRN; Protocol PRN Reason: Hypoglycemia Protocol Dextrose (Glutose 15) 0 gm PO ONCE PRN; Protocol PRN Reason: Hypoglycemia Protocol Enoxaparin Sodium (Lovenox) 40 mg SC DAILY [facility] PRN Reason: Protocol Last Admin: 08/06/17 08:20 Dose: 40 mg Glucagon (Glucagen Diagnostic Kit) 0 mg IM STAT PRN; Protocol PRN Reason: Hypoglycemia Protocol Insulin Human Lispro (Humalog) 0 units SC ACHS [facility] PRN Reason: Protocol Last Admin: 08/06/17 08:20 Dose: Not Given Metoprolol Succinate (Toprol Xl) 25 mg PO DAILY [facility] Last Admin: 08/06/17 08:20 Dose: 25 mg Oxycodone/Acetaminophen (Percocet 5/325 Mg Tab) 1 tab PO Q6 PRN PRN Reason: Pain, severe (8-10) Stop: 08/06/17 16:01 Sitagliptin Phosphate (Januvia) 100 mg PO DAILY [facility] Valsartan (Diovan) 160 mg PO DAILY [facility] Vitamin A (Vitamin A & D Oint Ud Foilpak) 1 ea TOP BID [facility] Last Admin: 08/06/17 08:21 Dose: 1 ea - Labs Labs: 08/05/17 06:12 08/05/17 06:12 PT 12.2 Seconds (9.8-13.1) 08/03/17 14:10 INR 1.1 (0.9-1.2) 08/03/17 14:10 APTT 26.3 Seconds (25.6-37.1) 08/03/17 14:10 - Head Exam Head Exam: NORMAL INSPECTION - Eye Exam Eye Exam: Normal appearance - ENT Exam ENT Exam: Mucous Membranes Moist - GI/Abdominal Exam GI & Abdominal Exam: Normal Bowel Sounds - Neurological Exam Neurological Exam: Alert, Awake Assessment and Plan (1) Rhabdomyolysis Status: Acute (2) Contusion, knee Status: Acute (3) Dehydration Status: Acute (4) Dementia Status: Chronic - Assessment and Plan (Free Text) Plan: Cont meds Pain meds Phys therapy cont all meds
[2017-08-07] MEDS: Insulin Lispro (humaLOG) 100 Units/ml Inj SC SCH ×4 (08:54→23:22)
[2017-08-07] MEDS: Enoxaparin 40 mg Syringe SC SCH (09:01)
[2017-08-07] MEDS: Vitamins A & D Oint UD Foilpak TOP SCH ×2 (09:02→17:20)
[2017-08-07] MEDS: Metoprolol Succinate 25 mg XL Tab PO SCH (09:02)
--- NOTE | 2017-08-07 13:36 | CP.PCM.PN ---
Subjective - Date & Time of Evaluation Date of Evaluation: 08/07/17 Time of Evaluation: 13:34 - Subjective Subjective: Patient is feeling better Has less pain in the back Notred decrease in CPK to 157 WBC is normal. Has no fever. Has no chest pain or SOB. Objective - Vital Signs/Intake and Output Vital Signs (last 24 hours): Temp Pulse Resp BP Pulse Ox 98.1 F 63 20 128/65 94 L 08/07/17 08:39 08/07/17 09:02 08/07/17 08:39 08/07/17 09:02 08/07/17 08:39 - Medications Medications: Current Medications Acetaminophen (Tylenol 325mg Tab) 650 mg PO Q6 PRN PRN Reason: Pain, Mild (1-3) Acetaminophen (Tylenol 325mg Tab) 650 mg PO Q6 PRN PRN Reason: Fever >100.4 F Amlodipine Besylate (Norvasc) 5 mg PO DAILY [facility] Last Admin: 08/07/17 09:02 Dose: 5 mg Dextrose (Dextrose 50% Inj) 0 ml IV STAT PRN; Protocol PRN Reason: Hypoglycemia Protocol Dextrose (Glutose 15) 0 gm PO ONCE PRN; Protocol PRN Reason: Hypoglycemia Protocol Enoxaparin Sodium (Lovenox) 40 mg SC DAILY [facility] PRN Reason: Protocol Last Admin: 08/07/17 09:01 Dose: 40 mg Glucagon (Glucagen Diagnostic Kit) 0 mg IM STAT PRN; Protocol PRN Reason: Hypoglycemia Protocol Insulin Human Lispro (Humalog) 0 units SC ACHS [facility] PRN Reason: Protocol Last Admin: 08/07/17 12:48 Dose: 2 units Metoprolol Succinate (Toprol Xl) 25 mg PO DAILY [facility] Last Admin: 08/07/17 09:02 Dose: 25 mg Sitagliptin Phosphate (Januvia) 100 mg PO DAILY [facility] Last Admin: 08/07/17 09:01 Dose: 100 mg Valsartan (Diovan) 160 mg PO DAILY [facility] Last Admin: 08/07/17 09:01 Dose: 160 mg Vitamin A (Vitamin A & D Oint Ud Foilpak) 1 ea TOP BID [facility] Last Admin: 08/07/17 09:02 Dose: 1 ea - Labs Labs: 08/05/17 06:12 08/05/17 06:12 PT 12.2 Seconds (9.8-13.1) 08/03/17 14:10 INR 1.1 (0.9-1.2) 08/03/17 14:10 APTT 26.3 Seconds (25.6-37.1) 08/03/17 14:10 - Head Exam Head Exam: NORMAL INSPECTION - Eye Exam Eye Exam: Normal appearance - ENT Exam ENT Exam: Mucous Membranes Moist - Respiratory Exam Respiratory Exam: Clear to Ausculation Bilateral - Cardiovascular Exam Cardiovascular Exam: REGULAR RHYTHM - GI/Abdominal Exam GI & Abdominal Exam: Normal Bowel Sounds - Neurological Exam Neurological Exam: Awake - Psychiatric Exam Psychiatric exam: Normal Mood Assessment and Plan (1) Rhabdomyolysis Status: Acute (2) Contusion, knee Status: Acute (3) Dehydration Status: Acute (4) Dementia Status: Chronic - Assessment and Plan (Free Text) Plan: Cont meds Cont tx Cont pain meds DC plans in am. arrange for homemaker services in am.
--- NOTE | 2017-08-07 17:45 | CP.PCM.CON ---
History of Present Illness - History of Present Illness History of Present Illness: Consulation for evaluation of possible syncope s/p fall with rhabdo HPI: 89 year old female with hx of dementia presenting with fall , found on the floor. Poor historian. Denies any LOC, palpitations, syncope or presyncope. Review of Systems - Review of Systems Systems not reviewed;Unavailable: Acuity of Condition - Constitutional Constitutional: As Per HPI - EENT Eyes: As Per HPI Ears: As Per HPI Nose/Mouth/Throat: As Per HPI - Breasts Breasts: As Per HPI - Cardiovascular Cardiovascular: As Per HPI - Respiratory Respiratory: As Per HPI - Gastrointestinal Gastrointestinal: As Per HPI - Genitourinary Genitourinary: As Per HPI - Reproductive: Female Reproductive:Female: As Per HPI - Menstruation Menstruation: As Per HPI - Musculoskeletal Musculoskeletal: As Per HPI - Integumentary Integumentary: As Per HPI - Neurological Neurological: As Per HPI - Psychiatric Psychiatric: As Per HPI - Endocrine Endocrine: As Per HPI - Hematologic/Lymphatic Hematologic: As Per HPI Past Patient History - Past Social History Smoking Status: Never Smoked - CARDIAC Hx Hypertension: Yes - PULMONARY Hx Respiratory Disorders: No - NEUROLOGICAL Hx Dementia: Yes - HEENT Hx HEENT Problems: No Other/Comment: hx of lasik procedure - RENAL Hx Chronic Kidney Disease: No - ENDOCRINE/METABOLIC Hx Endocrine Disorders: Yes - HEMATOLOGICAL/ONCOLOGICAL Hx Blood Disorders: No - INTEGUMENTARY Hx Dermatological Problems: No - MUSCULOSKELETAL/RHEUMATOLOGICAL Hx Musculoskeletal Disorders: Yes Hx Falls: Yes - GENITOURINARY/GYNECOLOGICAL Hx Genitourinary Disorders: Yes - PSYCHIATRIC Hx Psychophysiologic Disorder: No Hx Substance Use: No - SURGICAL HISTORY Hx Cholecystectomy: Yes Hx Orthopedic Surgery: Yes (b/l hip arthroplasties) Other/Comment: b/l shoulder surgery - ANESTHESIA Hx Anesthesia: Yes Hx Anesthesia Reactions: No Meds Allergies/Adverse Reactions: Allergies Allergy/AdvReac Type Severity Reaction Status Date / Time No Known Allergies Allergy Verified 08/20/15 23:55 - Medications Medications: Current Medications Acetaminophen (Tylenol 325mg Tab) 650 mg PO Q6 PRN PRN Reason: Pain, Mild (1-3) Acetaminophen (Tylenol 325mg Tab) 650 mg PO Q6 PRN PRN Reason: Fever >100.4 F Amlodipine Besylate (Norvasc) 5 mg PO DAILY [facility] Last Admin: 08/07/17 09:02 Dose: 5 mg Dextrose (Dextrose 50% Inj) 0 ml IV STAT PRN; Protocol PRN Reason: Hypoglycemia Protocol Dextrose (Glutose 15) 0 gm PO ONCE PRN; Protocol PRN Reason: Hypoglycemia Protocol Enoxaparin Sodium (Lovenox) 40 mg SC DAILY [facility] PRN Reason: Protocol Last Admin: 08/07/17 09:01 Dose: 40 mg Glucagon (Glucagen Diagnostic Kit) 0 mg IM STAT PRN; Protocol PRN Reason: Hypoglycemia Protocol Insulin Human Lispro (Humalog) 0 units SC [facility] PRN Reason: Protocol Last Admin: 08/07/17 17:20 Dose: 3 units Metoprolol Succinate (Toprol Xl) 25 mg PO DAILY [facility] Last Admin: 08/07/17 09:02 Dose: 25 mg Sitagliptin Phosphate (Januvia) 100 mg PO DAILY [facility] Last Admin: 08/07/17 09:01 Dose: 100 mg Valsartan (Diovan) 160 mg PO DAILY [facility] Last Admin: 08/07/17 09:01 Dose: 160 mg Vitamin A (Vitamin A & D Oint Ud Foilpak) 1 ea TOP BID [facility] Last Admin: 08/07/17 17:20 Dose: 1 ea Physical Exam - Constitutional Appears: Well - Head Exam Head Exam: ATRAUMATIC, NORMAL INSPECTION, NORMOCEPHALIC - Eye Exam Eye Exam: EOMI, Normal appearance, PERRL Pupil Exam: NORMAL ACCOMODATION, PERRL - ENT Exam ENT Exam: Mucous Membranes Moist, Normal Exam - Neck Exam Neck exam: Positive for: Normal Inspection - Respiratory Exam Respiratory Exam: Clear to Auscultation Bilateral, NORMAL BREATHING PATTERN - Cardiovascular Exam Cardiovascular Exam: REGULAR RHYTHM, Systolic Murmur - GI/Abdominal Exam GI & Abdominal Exam: Normal Bowel Sounds, Soft. absent: Tenderness - Extremities Exam Extremities exam: Positive for: normal inspection - Back Exam Back exam: NORMAL INSPECTION - Neurological Exam Neurological exam: Alert, CN II-XII Intact, Normal Gait, Oriented x3, Reflexes Normal - Psychiatric Exam Psychiatric exam: Normal Affect, Normal Mood - Skin Skin Exam: Dry, Intact, Normal Color, Warm Results - Vital Signs Recent Vital Signs: Last Vital Signs Temp 97.9 F 08/07/17 16:03 Pulse 60 08/07/17 16:03 Resp 20 08/07/17 16:03 BP 135/72 08/07/17 16:03 Pulse Ox 95 08/07/17 16:03 - Labs Result Diagrams: 08/05/17 06:12 08/05/17 06:12 Labs: Laboratory Results - last 24 hr 08/06/17 08/07/17 08/07/17 21:31 05:40 09:00 POC Glucose (mg/dL) 152 H 145 H Total Creatine Kinase 157 H 08/07/17 08/07/17 10:58 15:52 POC Glucose (mg/dL) 199 H 202 H Total Creatine Kinase Assessment & Plan (1) Status post fall Assessment and Plan: etiology ? mechanical telemetry Status: Acute (2) Syncope Assessment and Plan: Echo Status: Acute (3) Dehydration Status: Acute (4) Rhabdomyolysis Status: Acute (5) Dementia Status: Chronic Priority: Medium
[2017-08-08] MEDS: Insulin Lispro (humaLOG) 100 Units/ml Inj SC SCH ×4 (07:49→21:38)
[2017-08-08] MEDS: Enoxaparin 40 mg Syringe SC SCH (09:02)
[2017-08-08] MEDS: Metoprolol Succinate 25 mg XL Tab PO SCH (09:02)
[2017-08-08] MEDS: Vitamins A & D Oint UD Foilpak TOP SCH ×2 (09:03→16:34)
--- NOTE | 2017-08-08 10:57 | CP.PCM.PN ---
Subjective - Date & Time of Evaluation Date of Evaluation: 08/08/17 Time of Evaluation: 07:20 - Subjective Subjective: Patient seen and examined bedside with Dr Toro. Patient reports feeling better. Denies chest pain, SOB, abd pain, good urine output CK improved. pending brain MRI and EEG Objective - Vital Signs/Intake and Output Vital Signs (last 24 hours): Temp Pulse Resp BP Pulse Ox 98 F 60 20 135/83 96 08/08/17 07:54 08/08/17 09:02 08/08/17 07:54 08/08/17 09:02 08/08/17 07:54 Intake and Output: 08/08/17 08/08/17 06:59 18:59 Intake Total 200 Balance 200 - Medications Medications: Current Medications Acetaminophen (Tylenol 325mg Tab) 650 mg PO Q6 PRN PRN Reason: Pain, Mild (1-3) Last Admin: 08/07/17 23:17 Dose: 650 mg Acetaminophen (Tylenol 325mg Tab) 650 mg PO Q6 PRN PRN Reason: Fever >100.4 F Amlodipine Besylate (Norvasc) 5 mg PO DAILY [facility] Last Admin: 08/08/17 09:02 Dose: 5 mg Dextrose (Dextrose 50% Inj) 0 ml IV STAT PRN; Protocol PRN Reason: Hypoglycemia Protocol Dextrose (Glutose 15) 0 gm PO ONCE PRN; Protocol PRN Reason: Hypoglycemia Protocol Enoxaparin Sodium (Lovenox) 40 mg SC DAILY [facility] PRN Reason: Protocol Last Admin: 08/08/17 09:02 Dose: 40 mg Glucagon (Glucagen Diagnostic Kit) 0 mg IM STAT PRN; Protocol PRN Reason: Hypoglycemia Protocol Insulin Human Lispro (Humalog) 0 units SC [facility] PRN Reason: Protocol Last Admin: 08/08/17 07:49 Dose: Not Given Metoprolol Succinate (Toprol Xl) 25 mg PO DAILY [facility] Last Admin: 08/08/17 09:02 Dose: 25 mg Sitagliptin Phosphate (Januvia) 100 mg PO DAILY [facility] Last Admin: 08/08/17 09:01 Dose: 100 mg Valsartan (Diovan) 160 mg PO DAILY [facility] Last Admin: 08/08/17 09:01 Dose: 160 mg Vitamin A (Vitamin A & D Oint Ud Foilpak) 1 ea TOP BID [facility] Last Admin: 08/08/17 09:03 Dose: 1 ea - Labs Labs: 08/05/17 06:12 08/05/17 06:12 PT 12.2 Seconds (9.8-13.1) 08/03/17 14:10 INR 1.1 (0.9-1.2) 08/03/17 14:10 APTT 26.3 Seconds (25.6-37.1) 08/03/17 14:10 - Constitutional Appears: Non-toxic, No Acute Distress - Head Exam Head Exam: ATRAUMATIC, NORMOCEPHALIC - Eye Exam Eye Exam: Normal appearance - ENT Exam ENT Exam: Mucous Membranes Moist - Respiratory Exam Respiratory Exam: Clear to Ausculation Bilateral. absent: Rhonchi, Wheezes - Cardiovascular Exam Cardiovascular Exam: REGULAR RHYTHM, +S1, +S2 - GI/Abdominal Exam GI & Abdominal Exam: Soft, Normal Bowel Sounds. absent: Tenderness - Neurological Exam Neurological Exam: Alert, Awake, Oriented x3 - Psychiatric Exam Psychiatric exam: Normal Affect, Normal Mood - Skin Skin Exam: Intact Assessment and Plan - Assessment and Plan (Free Text) Plan: Assessment/ plan 1) Fall at home -CT head : no intracranial bleeding x-ray cervical spine : no fracture x-ray hips: normal no fracture PT/OT -neuro consult appreciated: MRI brain, EEG Top Cager consult appreciated 2) Rhabdomyolysis -resolved -CK 157 -f/u ck 3) Hypertension continue home medication 4) DM -hold Metformin insulin sliding scale -hypoglycemia protocol 5) dementia - continue home medication 6) DVT prophylaxis Lovenox 40 mg sc daily
[2017-08-08 13:03] LABS: BASO % 0.4 % (0.0-2.0); EOS # 0.2 K/uL (0.0-0.7); EOS % 2.6 % (0.0-4.0); HEMOGLOBIN 13.7 g/dL (12.0-16.0); LYMPH # 2.9 K/uL (1.0-4.3); LYMPH % 40.8 % (20.0-40.0); MEAN CELL VOLUME 78.5 fl (81.0-99.0); MEAN CORPUSCULAR HEMOGLOBIN 25.1 pg (27.0-31.0); MONO # 0.7 K/uL (0.0-0.8); MONO % 9.2 % (0.0-10.0); NEUT # 3.4 K/uL (1.8-7.0); RBC 5.45 Mil/uL (3.80-5.20); RED CELL DISTRIBUTION WIDTH 13.9 % (11.5-14.5); WHITE BLOOD COUNT 7.2 K/uL (4.8-10.8)
[2017-08-08 13:26] LABS: ALB/GLOB RATIO 0.9 (1.0-2.1); ALBUMIN 3.9 g/dL (3.5-5.0); ALT/SGPT 44 U/L (9-52); AST/SGOT 32 U/L (14-36); BLOOD UREA NITROGEN 13 mg/dl (7-17); CALCIUM 9.9 mg/dL (8.4-10.2); GFR AFRICAN-AMERICAN > 60; GFR NON-AFRICAN AMERICAN > 60
[2017-08-09 08:14] VITALS: BP 160/89; RESP 20; TEMP 98; O2SAT 97
--- NOTE | 2017-08-09 09:20 | CP.PCM.PN ---
Subjective - Date & Time of Evaluation Date of Evaluation: 08/09/17 Time of Evaluation: 07:10 - Subjective Subjective: Patient seen and examined bedside with Dr Toro. Patient reports feeling better. Denies chest pain, SOB, abd pain, good urine output Rhabdo resolved CK 66 Objective - Vital Signs/Intake and Output Vital Signs (last 24 hours): Temp Pulse Resp BP Pulse Ox 98.0 F 59 L 20 160/89 H 97 08/09/17 08:13 08/09/17 08:13 08/09/17 08:13 08/09/17 08:13 08/09/17 08:13 - Medications Medications: Current Medications Acetaminophen (Tylenol 325mg Tab) 650 mg PO Q6 PRN PRN Reason: Pain, Mild (1-3) Last Admin: 08/09/17 05:27 Dose: 650 mg Acetaminophen (Tylenol 325mg Tab) 650 mg PO Q6 PRN PRN Reason: Fever >100.4 F Amlodipine Besylate (Norvasc) 5 mg PO DAILY [facility] Last Admin: 08/08/17 09:02 Dose: 5 mg Dextrose (Dextrose 50% Inj) 0 ml IV STAT PRN; Protocol PRN Reason: Hypoglycemia Protocol Dextrose (Glutose 15) 0 gm PO ONCE PRN; Protocol PRN Reason: Hypoglycemia Protocol Enoxaparin Sodium (Lovenox) 40 mg SC DAILY [facility] PRN Reason: Protocol Last Admin: 08/08/17 09:02 Dose: 40 mg Glucagon (Glucagen Diagnostic Kit) 0 mg IM STAT PRN; Protocol PRN Reason: Hypoglycemia Protocol Insulin Human Lispro (Humalog) 0 units SC [facility] PRN Reason: Protocol Last Admin: 08/08/17 21:38 Dose: Not Given Metoprolol Succinate (Toprol Xl) 25 mg PO DAILY [facility] Last Admin: 08/08/17 09:02 Dose: 25 mg Sitagliptin Phosphate (Januvia) 100 mg PO DAILY [facility] Last Admin: 08/08/17 09:01 Dose: 100 mg Valsartan (Diovan) 160 mg PO DAILY [facility] Last Admin: 08/08/17 09:01 Dose: 160 mg Vitamin A (Vitamin A & D Oint Ud Foilpak) 1 ea TOP BID [facility] Last Admin: 08/08/17 16:34 Dose: 1 ea - Labs Labs: 08/08/17 12:25 08/08/17 12:25 PT 12.2 Seconds (9.8-13.1) 08/03/17 14:10 INR 1.1 (0.9-1.2) 08/03/17 14:10 APTT 26.3 Seconds (25.6-37.1) 08/03/17 14:10 - Constitutional Appears: Non-toxic, No Acute Distress - Head Exam Head Exam: ATRAUMATIC, NORMOCEPHALIC - Eye Exam Eye Exam: Normal appearance - ENT Exam ENT Exam: Mucous Membranes Moist - Neck Exam Neck Exam: Normal Inspection - Respiratory Exam Respiratory Exam: Clear to Ausculation Bilateral - Cardiovascular Exam Cardiovascular Exam: REGULAR RHYTHM, +S1, +S2 - GI/Abdominal Exam GI & Abdominal Exam: Soft, Normal Bowel Sounds. absent: Tenderness - Extremities Exam Extremities Exam: Normal Inspection. absent: Pedal Edema - Back Exam Back Exam: NORMAL INSPECTION - Neurological Exam Neurological Exam: Alert, Awake, Oriented x3 - Psychiatric Exam Psychiatric exam: Normal Affect, Normal Mood - Skin Skin Exam: Intact Assessment and Plan - Assessment and Plan (Free Text) Plan: Assessment/ plan 1) Fall at home -CT head : no intracranial bleeding x-ray cervical spine : no fracture x-ray hips: normal no fracture PT/OT -neuro consult appreciated: MRI brain, EEG Corporate Safety Director consult appreciated 2) Rhabdomyolysis -resolved -CK 66 -f/u ck 3) Hypertension continue home medication 4) DM -hold Metformin insulin sliding scale -hypoglycemia protocol 5) dementia - continue home medication 6) DVT prophylaxis Lovenox 40 mg sc daily
[2017-08-09] MEDS: Insulin Lispro (humaLOG) 100 Units/ml Inj SC SCH ×2 (09:26→13:14)
[2017-08-09] MEDS: Enoxaparin 40 mg Syringe SC SCH (09:26)
[2017-08-09] MEDS: Metoprolol Succinate 25 mg XL Tab PO SCH (09:28)
[2017-08-09 09:29] VITALS: PULSE 60
[2017-08-09] MEDS: Vitamins A & D Oint UD Foilpak TOP SCH (09:29)
--- NOTE | 2017-08-09 11:08 | MRI ---
PROCEDURE: MRI BRAIN WITHOUT CONTRAST HISTORY: Fall, r/o seizure COMPARISON: Unenhanced head CT 08/03/2017. TECHNIQUE: Multiplanar, multisequence MR images of the brain were obtained without intravenous contrast enhancement. FINDINGS: HEMORRHAGE: None DWI: No evidence of an acute or early subacute infarction. BRAIN PARENCHYMA: Minimal expansion of the ventricular sulcal sternal spaces appreciated as well as periventricular and subcortical white matter changes with both findings respectively compatible with diffuse cerebral atrophy chronic microangiopathy. Examination appears stable in the interval. Dilated perivascular uses are favored over chronic lacunes at the right greater than left basal ganglia. Posterior fossa contents appear unremarkable including the brainstem. There is no suspicious extra-axial collection identified. Corticomedullary pattern is unremarkable diffusely. VENTRICLES: Unremarkable. No hydrocephalus. CRANIUM: Unremarkable. ORBITS: Grossly unremarkable. PARANASAL SINUSES/MASTOIDS: Clear VASCULAR SYSTEM: Skull base flow voids intact. OTHER FINDINGS: None. IMPRESSION: Limited age-related neuro degenerative findings are appreciated without evidence of acute or subacute brain infarction, mass effect, intracranial hemorrhage or hydrocephalus. The study is stable in the interval essentially.
--- NOTE | 2017-08-09 12:03 | CP.PCM.PN ---
Subjective - Date & Time of Evaluation Date of Evaluation: 08/09/17 Time of Evaluation: 11:59 - Subjective Subjective: Ms. Guerra was seen and examined at the bedside. She is alert oriented with episode of confusion. She denies any headache, lightheadedness, follows simple commands. She is having a pleasant conversation with her roommate. MRI of the brain showed age-related neuro-degenerative changes with no acute infarction noted.There was no untoward events overnight. Objective - Vital Signs/Intake and Output Vital Signs (last 24 hours): Temp Pulse Resp BP Pulse Ox 98.0 F 60 20 160/89 H 97 08/09/17 08:13 08/09/17 09:28 08/09/17 08:13 08/09/17 09:28 08/09/17 08:13 - Medications Medications: Current Medications Acetaminophen (Tylenol 325mg Tab) 650 mg PO Q6 PRN PRN Reason: Pain, Mild (1-3) Last Admin: 08/09/17 05:27 Dose: 650 mg Acetaminophen (Tylenol 325mg Tab) 650 mg PO Q6 PRN PRN Reason: Fever >100.4 F Amlodipine Besylate (Norvasc) 5 mg PO DAILY [facility] Last Admin: 08/09/17 09:28 Dose: 5 mg Dextrose (Dextrose 50% Inj) 0 ml IV STAT PRN; Protocol PRN Reason: Hypoglycemia Protocol Dextrose (Glutose 15) 0 gm PO ONCE PRN; Protocol PRN Reason: Hypoglycemia Protocol Enoxaparin Sodium (Lovenox) 40 mg SC DAILY [facility] PRN Reason: Protocol Last Admin: 08/09/17 09:26 Dose: Not Given Glucagon (Glucagen Diagnostic Kit) 0 mg IM STAT PRN; Protocol PRN Reason: Hypoglycemia Protocol Insulin Human Lispro (Humalog) 0 units SC [facility] PRN Reason: Protocol Last Admin: 08/09/17 09:26 Dose: 2 units Metoprolol Succinate (Toprol Xl) 25 mg PO DAILY [facility] Last Admin: 08/09/17 09:28 Dose: 25 mg Sitagliptin Phosphate (Januvia) 100 mg PO DAILY [facility] Last Admin: 08/09/17 09:26 Dose: 100 mg Valsartan (Diovan) 160 mg PO DAILY [facility] Last Admin: 08/09/17 09:23 Dose: 160 mg Vitamin A (Vitamin A & D Oint Ud Foilpak) 1 ea TOP BID [facility] Last Admin: 08/09/17 09:29 Dose: 1 ea - Labs Labs: 08/08/17 12:25 08/08/17 12:25 PT 12.2 Seconds (9.8-13.1) 08/03/17 14:10 INR 1.1 (0.9-1.2) 08/03/17 14:10 APTT 26.3 Seconds (25.6-37.1) 08/03/17 14:10 - Constitutional Appears: No Acute Distress - Head Exam Head Exam: NORMAL INSPECTION - Eye Exam Pupil Exam: PERRL - Neurological Exam Neurological Exam: Alert, Awake Neuro motor strength exam: Left Upper Extremity: 5, Right Upper Extremity: 5, Left Lower Extremity: 5, Right Lower Extremity: 5 Additional comments: Neurological unchanged from previous examination. Assessment and Plan (1) Dementia Assessment & Plan: Case discussed with Dr. Michaud, continue all current medical regimen. Pending EEG result, if normal patient is clear for discharge and if its abnormal with epileptic activity will start her on AED. Status: Chronic
== END 2017-08-09 16:15 | disposition left against medical advice (07) | DRG 566 ==
LOC: H.ER 13:14 → H.ERHOLD 15:17 → H.MEDSURG1 16:27
PROVIDERS: ADMIT Internal Medicine; ATTEND Internal Medicine
PROC: 3E0234Z Introduction of Serum, Toxoid and Vaccine into Muscle, Percutaneous Approach (ICD-10-PCS; principal; 2017-08-03)
DX: T79.6XXA Traumatic ischemia of muscle, initial encounter (principal); E11.65 Type 2 diabetes mellitus with hyperglycemia; I10 Essential (primary) hypertension; F03.90 Unspecified dementia, unspecified severity, without behavioral disturbance, psychotic disturbance, mood disturbance, and anxiety; Z96.643 Presence of artificial hip joint, bilateral; E86.0 Dehydration; R55 Syncope and collapse; Z23 Encounter for immunization; S80.00XA Contusion of unspecified knee, initial encounter; W19.XXXA Unspecified fall, initial encounter; Y93.9 Activity, unspecified; Y92.002 Bathroom of unspecified non-institutional (private) residence as the place of occurrence of the external cause